=== PATIENT | female | born 1990 | race Caucasian/White ===

== ENCOUNTER 2019-08-25 10:08 | Day surgery (SDC) | payer OTHER ==
[2019-08-25] MEDS ORDERED: PROPOFOL 200 MG/20 ML VIAL IVP ONE (10:09)
[2019-08-25] MEDS ORDERED: fentaNYL 250 MCG/5 ML VIAL IVP ONE (10:09)
[2019-08-25] MEDS ORDERED: MIDAZOLAM 2 MG/2 ML VIAL IVP ONE (10:09)
[2019-08-25] MEDS ORDERED: ACETAMINOPHEN 1,000 MG/100 ML 100 ML IV ONE ×2 (10:09→11:14)
[2019-08-25] MEDS ORDERED: DEXAMETHASONE 4 MG/ML VIAL IVP ONE (10:09)
[2019-08-25] MEDS ORDERED: KETOROLAC 30 MG/ML VIAL IVP ONE (10:09)
[2019-08-25] MEDS ORDERED: LACTATED RINGERS 1,000 ML IV ONE ×2 (10:22→14:56)
[2019-08-25] MEDS ORDERED: CEFAZOLIN SODIUM IN 0.9 % NACL 2 GM/100 ML BAG IV ONE (10:29)
[2019-08-25 10:37] LABS: HCG UR QUAL NEGATIVE
[2019-08-25] MEDS ORDERED: BUPIVACAINE 0.25% PF 30 ML VIAL ONE (11:02)
--- NOTE | 2019-08-25 11:04 | ANESTHESIA ---
Pre-Anesthesia VS, & Labs - Diagnosis right ankle fracture - Procedure right ORIF ankle fracture Vital Signs: Temp Pulse Resp BP Pulse Ox 36.1 C L 99 18 132/85 H 98 08/25/19 10:23 08/25/19 10:23 08/25/19 10:23 08/25/19 10:23 08/25/19 10:23 Height 5 ft 7 in Weight (kg) 86.18 kg - NPO >8 hours - Is Patient ?: No Home Medications and Allergies Home Medications: Ambulatory Orders Hydrocodone/Acetaminophen [Hydrocodon-Acetaminoph 7.5-325] 1 each PO PRN 08/23/19 Hydrocodone/Acetaminophen [Hydrocodon-Acetaminoph 7.5-325] 1 each PO PRN 08/23/19 Allergies/Adverse Reactions: Allergies Allergy/AdvReac Type Severity Reaction Status Date / Time No Known Drug Allergies Allergy Verified 08/23/19 15:54 Anes History & Medical History - Anesthetic History Anesthesia Complications: reports: No previous complications - Medical History Cardiovascular: reports: None Pulmonary: reports: None Gastrointestinal: reports: None Urinary: reports: None Neuro: reports: None Musculoskeletal: reports: Other Endocrine/Autoimmune: reports: None Skin: reports: None Smoking Status: Never smoker Exam General: Alert Dental: WNL Mouth Opening: Greater than 4 Fingerbreadths Mallampati classification: I Thyromental Distance: greater than 6 cm Respiratory: Lungs clear, Normal breath sounds Cardiovascular: Regular rate, Normal S1, Normal S2, No murmurs Plan Anesthesia Type: General, Popliteal Block Consent for Procedure(s) Verified and Reviewed: Yes Code Status: Attempt Resuscitation ASA classification: 1-Healthy patient Is this case an emergency?: No
[2019-08-25] MEDS ORDERED: GABAPENTIN 400 MG CAPSULE ONE (11:13)
[2019-08-25] MEDS ORDERED: CELECOXIB 100 MG CAPSULE PO ONE (11:13)
[2019-08-25] MEDS ORDERED: BUPIVACAINE 0.25% PF 30 ML VIAL SUBQ ONE (12:22)
[2019-08-25] MEDS ORDERED: ONDANSETRON 4 MG/2 ML VIAL IVP PRN (16:18)
[2019-08-25] MEDS ORDERED: oxyCODONE 5 MG TABLET PO PRN (16:18)
[2019-08-25] MEDS: HYDROmorphone 1 MG/ML CARPUJECT ONE ×3 (16:36→16:47)
--- NOTE | 2019-08-25 16:42 | OPERATIVE REPORT ---
Operative Report - Other Other Information/Narrative: Date of Surgery: 25 August 2019 Pre-Op Diagnosis: Fibular shaft fracture, medial malleolus fracture, syndesmosis disruption Procedure: Open reduction internal fixation of fibula shaft. Open reduction internal fixation of medial malleolus. Open reduction internal fixation of syndesmosis. Postop Diagnosis: Same Primary Surgeon: Gerardo Arredondo Secondary Surgeon: Jorge Truong Complications: None Tourniquet Time: 131 minutes EBL: 50 cc Implants: Synthes one third tubular plates x2 with associated screws. Medial malleolus screws partially threaded. Arthrex knotless syndesmosis tight rope. Postoperative Protocol: Splint until 2 weeks. X-rays sutures out at 2 weeks. Transition to boot for range of motion activities but no weightbearing. Weightbearing in the boot from 6 weeks to 12 weeks. Weightbearing out of the boot at 12 weeks. Running can begin at 4 weeks and normal activities can be advanced after that. Indication For Surgery: 28-year-old female sustained the above degrees when she jumped over a fence on 07 August while trying to help her dog. This was in [place]. She was seen in an emergency room as well as by an orthopedic surgeon but decided to not have the surgery until she figured things out with the [employer]. She presented to [facility] last week and I set up surgery for her. She is indicated for surgery to restore her bony alignment and allow for early active motion. The risks, benefits, and alternatives were discussed. Risks include pain, bleeding, infection, damage to nearby structures, numbness, lack of symptom relief, implant complications, nonunion, need for further surgery, DVT, PE, stroke, and . Written consent was obtained. Procedure in Detail: The patient was met in the pre-operative hold area on the day of the procedure. The operative extremity was signed and questions were answered. The patient was brought to the operating room and a general anesthetic was administered. Supine position was used and all bony prominences were padded. Standard prepping and draping was performed. A time out confirmed patient identification, laterality, procedure, allergies, antibiotics, and images. An Esmarch was used to exsanguinate the limb and the tourniquet was elevated to 250 mmHg. A large lateral incision was made directly over the fibula. I carefully dissected down to the fascia looking for the superficial peroneal nerve. It was found to distally within the incision and protected throughout the case. The fascia was opened longitudinally and the peroneal musculature was carefully dissected from the fascia anteriorly and retracted posteriorly throughout the case. Identified the fracture and took great efforts to mobilize it and remove all early callus and blocks to reduction. I then reduced the posterior butterfly fragment to the proximal piece and placed a lag screw in there. This reestablished a crotch to fix the spike of the distal fragment into. I then placed the posterior lateral plate in antiglide fashion. It took considerable effort to get the fracture out to length but I was satisfied that I did. The plate was then fixed into place and I attempted to make it long enough to put a syndesmosis fixation through it distally but the available plates are slightly too short. After placing all screws that are necessary into the plate the fracture was found to be very well reduced and well fixed. I then moved to the medial side and made a longitudinal incision there. I took great care to preserve the saphenous vein and nerve. Sharp dissection was brought down through to the fracture site and the thick periosteum and early callus was debrided from the fracture. I visualize the joint and irrigated it. I did not see any talar lesions. I then reduced the fracture anatomically and placed a [id number] clamp. The cannulated screw kit was then used to find my trajectory under fluoroscopy and the wires were placed. I then drilled remove the wires in place solid screws. My anterior screw was further anterior than his typical but I elected to keep it because I knew it was safe and had excellent purchase. The posterior screw also had excellent purchase. Satisfied with my reduction and fixation I then moved onto syndesmosis evaluation. Prior to the surgery I had taken images of the contralateral normal ankle for comparison. I then pulled up these images and performed a stress external rotation x-ray on the injured ankle. The syndesmosis was found to widen. In my hands it also felt unstable in the distal fibula. I then used a lateral x-ray and compared the perfect talus lateral of the normal in the injured ankle. I then applied a plate extension and fixed it into place. With the fibula in the correct position within the syndesmosis I then placed the tight rope perpendicular splitting the uprights of the medial malleolar screws. I then dorsiflex the ankle to 90 degrees and tightened the tight rope. Stress external rotation x-rays were then stable and the fibula felt stable within the wound. Final images were then taken. The wounds were then irrigated copiously and closed in a layered fashion with 0 Vicryl over the plate and in the fascia, 2-0 Vicryl in the dermis and a running nylon in the skin. Sterile dressing and splint was applied. The anesthesia team then did a block and she was transferred to the recovery room.
--- NOTE | 2019-08-25 16:42 | ANESTHESIA PROCEDURE NOTE ---
Diagnosis: Right ankle fracture Procedure: Right popliteal block and right saphenous nerve block Height and Weight: Height 5 ft 7 in Weight (kg) 86.18 kg Vital Signs: Temp Pulse Resp BP Pulse Ox 37 C 103 H 18 124/84 H 99 08/25/19 16:25 08/25/19 16:25 08/25/19 16:25 08/25/19 16:25 08/25/19 16:25 Allergies No Known Drug Allergies Allergy (Verified 08/23/19 15:54) Requesting Provider: apurva Location: right leg ASA classification: 1-Healthy patient Is this case an emergency?: No Anes. Procedure Start Time: 16:00 Anes. Procedure Stop Time: 16:15 Procedure Notes: With patient under general anesthesia, the posterior portion of the right leg was prepped with chlorohexadine. The common peroneal and tibial nerves were i dentified under ultrasound. A 22G blunted needle was directed towards the nerve sheaths. A total of 30ml of 0.5% ropivicaine with 3mg decadron injected around the nerves with adequate spread noted. A saphenous nerve field block was performed with 10ml 0.5% ropivicaine and 1mg decadron. Patient tolerated well. Full evaluation is pending.
[2019-08-25] MEDS ORDERED: HYDROmorphone 0.5 MG/0.5 ML SYRINGE ONE (16:48)
[2019-08-25] MEDS: fentaNYL 100 MCG/2 ML VIAL ONE ×3 (17:00→17:10)
--- NOTE | 2019-08-25 17:07 | XRAY Report ---
Reason: FX RIGHT ANKLE Procedure Date: 08/25/2019 Accession Number: [id number] / [id number] Procedure: FL - OR C-Arm Procedure CPT Code: Final Report FULL RESULT: EXAM: FLUOROSCOPIC GUIDANCE EXAM DATE: 08/25/2019 03:30 PM. CLINICAL HISTORY: Right ankle fracture. COMPARISON: OR C-ARM PROCEDURE 08/25/2019 12:18 PM. FINDINGS IMPRESSION: C-arm services were provided for an intraoperative ORIF - distal fibula and tibia. Final images demonstrate a metallic side plate of the distal fibular shaft and compressions screws in the medial malleolus. Reference surgical report for more detailed procedural information. Total fluoroscopy time: 1.3 minutes. Number of images: 14. RADIA
[2019-08-25 18:36] VITALS: BP 134/84
== END 2019-08-25 10:09 | disposition home or self-care (01) ==
LOC: SDS 10:08
PROVIDERS: ATTEND Orthopaedic Surgery
PROC: 0QSJ04Z Reposition Right Fibula with Internal Fixation Device, Open Approach (ICD-10-PCS; 2019-08-25)
PROC: 0QSG04Z Reposition Right Tibia with Internal Fixation Device, Open Approach (ICD-10-PCS; principal; 2019-08-25 11:30)
DX: S82.851A Displaced trimalleolar fracture of right lower leg, initial encounter for closed fracture (principal)
CPT/HCPCS: 81025